=== PATIENT | female | born 1980 | race African-American/Black ===

== ENCOUNTER 2017-08-09 09:12 | Emergency (ER) | payer MEDICARE, MEDICAID ==
[~2017-08-09] VITALS: Ht 162.6 cm; Wt 88.5 kg
[2017-08-09] MEDS ORDERED: ASPirin 81 mg TAB PO ONE (09:45)
[2017-08-09] MEDS ORDERED: NITROGLYCERIN 0.4 MG SL TAB SL ONE (09:45)
[2017-08-09 10:23] LABS: INR 3.65 (0.9-1.15); Partial Thromboplastin Time 35.3 sec (22.64-33.71); Prothrombin Time 40.3 sec (9.37-12.3)
[2017-08-09 10:34] LABS: Alanine Aminotransferase 197 U/L (13-56); Albumin 3.6 g/dL (3.4-5.0); Alkaline Phosphatase 172 U/L (45-117); Anion Gap 7 (5-15); Aspartate Aminotransferase 429 U/L (15-37); BUN/Creatinine Ratio 18.5; Bilirubin, Total 1.2 mg/dL (0.2-1.0); Blood Urea Nitrogen 12 mg/dL (7-18); Calcium 8.4 mg/dL (8.5-10.1); Carbon Dioxide 25 mmol/L (21-32); Chloride 110 mmol/L (98-107); GFR African American 131 mL/min; GFR Non-African American 108 mL/min; Glucose 108 mg/dL (74-106); Potassium 3.6 mmol/L (3.5-5.1); Sodium 142 mmol/L (136-145); Total Protein 7.6 g/dL (6.4-8.2)
[2017-08-09 11:48] LABS: Basophils # (auto) 0 uL; Basophils % (auto) 0.4 % (0.0-2.0); Eosinophils # (auto) 0 uL; Eosinophils % (auto) 0.3 % (0.0-7.0); Hematocrit 43.8 % (36.0-46.0); Hemoglobin 14.9 g/dL (12.2-16.2); Lymphocytes % (auto) 14.8 % (10.0-50.0); Mean Corpuscular Hemoglobin 31.8 pg (28.0-32.0); Mean Corpuscular Hgb Conc. 34.1 g/dL (32.0-36.0); Mean Corpuscular Volume 93.3 fL (80.0-100.0); Monocytes # (auto) 0.3 uL; Monocytes % (auto) 4.2 % (0.0-12.0); Neutrophils # (auto) 5.2 uL; Neutrophils % (auto) 80.3 % (37.0-80.0); Nucleated Red Blood Cells % 0.2 %; Platelet Count (auto) 249 10^3/uL (140-450); Red Cell Distribution Width 12.9 % (11.8-14.3); White Blood Cell 6.5 10^3/uL (4.4-10.8)
[2017-08-09] MEDS ORDERED: SODIUM CHLORIDE 0.9% 1,000 ML IV SCH (13:14)
[2017-08-09] MEDS ORDERED: cefTRIAXone 1GM/10ml IVPUSH 10 ML IV ONE (13:15)
[2017-08-09] MEDS ORDERED: TEMAZEPAM 15 MG CAP PO PRN (13:15)
[2017-08-09] MEDS ORDERED: NITROGLYCERIN 0.4 MG SL TAB SL PRN (13:15)
[2017-08-09] MEDS ORDERED: PROMETHAZINE HCL 25 MG/ML 1ML IV PRN (13:15)
[2017-08-09] MEDS ORDERED: LORazepam 0.5 MG TAB PO PRN (13:15)
[2017-08-09] MEDS ORDERED: PANTOPRAZOLE 40 MG/10 ML VIAL IV ONE (13:15)
[2017-08-09] MEDS ORDERED: MORPHINE SULFATE 8mg/ml INJ SDV IV PRN ×3 (13:15)
[2017-08-09] MEDS ORDERED: ALBUTEROL SULF 2.5 MG/0.5ML(0.5%) NEB SOLN NEB PRN (13:15)
[2017-08-09] MEDS ORDERED: metroNIDAZOLE 500MG/100ML 100 ML IV SCH (14:00)
[2017-08-09 14:25] LABS: Urine Bacteria NONE SEEN /hpf (None Seen); Urine Blood Negative /uL (Negative); Urine Mucus MODERATE (None Seen); Urine Specific Gravity 1.034 (1.001-1.035); Urine WBC 3 /hpf (0 - 5)
[2017-08-09 14:31] LABS: CRP High Sensitivity 0.19 mg/dL (< 0.3)
[2017-08-09 14:42] LABS: Alcohol, Urine < 3.0 mg/dL (0-5); Amphetamine Screen, Urine NEGATIVE (NEGATIVE); Barbiturate Scree,Urine NEGATIVE (NEGATIVE); Benzodiazephine Screen, Urine NEGATIVE (NEGATIVE); Cannabinoid Screen, Urine POSITIVE (NEGATIVE); Cocaine Screen, Urine NEGATIVE (NEGATIVE); Opiate Scree,Urine NEGATIVE (NEGATIVE); Phencyclidine Screen, Urine NEGATIVE (NEGATIVE)
[2017-08-09 15:00] VITALS: BP 110/67
[2017-08-10] MEDS ORDERED: cefTRIAXone 1GM/10ml IVPUSH 10 ML IV SCH (09:00)
[2017-08-10] MEDS ORDERED: PANTOPRAZOLE 40 MG/10 ML VIAL IV SCH (10:00)
[2017-08-12 09:21] LABS: Hepatitis B Surface Antibody Negative
[2017-08-12 09:59] LABS: Hepatitis A Total Antibody Negative
[2017-08-12 14:33] LABS: Hepatitis B Core Total AB Negative
[2017-08-12 14:34] LABS: Hepatitis B Surface Antigen Negative (Negative); Hepatitis C Antibody Negative (Negative)
== END 2017-08-09 16:35 | disposition home or self-care (01) ==
LOC: ER 09:12 → TELE 09:13 → UNDOADMIN 09:13 → ER 16:35
DX: K82.9 Disease of gallbladder, unspecified (principal); R07.9 Chest pain, unspecified; F17.210 Nicotine dependence, cigarettes, uncomplicated; Z90.710 Acquired absence of both cervix and uterus; Z88.6 Allergy status to analgesic agent
CPT/HCPCS: 36415; 74176; 74181; 76705; 80053; 80307; 80329; 81001; 82150; 82550; 83690; 84443; 84484; 85025; 85610; 85652; 85730; 86141; 86704; 86706; 86708; 86803; 87340; 93005; 94640; 96365; 96372; 96375; 99291; C9113; J2270; J2550; J3490